=== PATIENT | female | born 1985 | race Caucasian/White ===

== ENCOUNTER 2016-12-11 15:48 | Emergency (ER) | payer OTHER ==
[~2016-12-11] VITALS: Wt 64.4 kg
[~2016-12-11 15:48] MED LIST: AMOXICILLIN500 MG PO; BACTRIM DS 8001 TA1 PO; CIPRO500 MG PO; CIPROFLOXACIN500 MG PO; DIFLUCAN150 MG PO; MACROBID100 M1 PO; MOTRIN800 MG PO; Motrin,Rufen800 MG PO; PYRIDIUM200 MG PO; ROBITUSSIN AC 110 ML PO; TRAMADOL HCL50 MG PO; TRIMOX500 MG PO; VICODIN 5/500 505 MG PO
[2016-12-11] MEDS ORDERED: VISTARIL25 MG PO (16:05)
[2016-12-11 17:11] LABS: BILIRUBIN NEGATIVE (NEGATIVE); BLOOD NEGATIVE (NEGATIVE); CLARITY SL CLOUDY (CLEAR); COLOR YELLOW (YELLOW); GLUCOSE NEGATIVE (NEGATIVE); KETONE NEGATIVE (NEGATIVE); LEUKO ESTERASE NEGATIVE (NEGATIVE); NITRITE NEGATIVE (NEGATIVE); PH 5.5 (5.0-9.0); PROTEIN NEGATIVE (NEGATIVE); SPECIFIC GRAVITY >= 1.030 (1.005-1.030); UROBILINOGEN 0.2 E.U./dl (0.2-1.0)
[2016-12-11 17:24] LABS: RBC 0-2 rbc/hpf (0-2)
[2016-12-11 17:25] LABS: BACTERIA 4+; EPITHELIAL CELLS 16-20; MUCOUS TRACE; URINE REFLEX COMMENT YES (NO)
[2016-12-11] MEDS ORDERED: CYCLOBENZAPRINE5 M3 PO (17:31)
== END 2016-12-11 19:46 | disposition home or self-care (01) ==
LOC: ED 15:48
PROVIDERS: Nurse Practitioner Family
DX: M54.5 Low back pain (principal); F17.200 Nicotine dependence, unspecified, uncomplicated

== ENCOUNTER 2016-12-21 15:07 | Emergency (ER) | payer OTHER ==
[~2016-12-21] VITALS: Ht 154.9 cm; Wt 64.9 kg
[~2016-12-21 15:07] MED LIST changes: +CYCLOBENZAPRINE5 M3 PO; +VISTARIL25 MG PO
[2016-12-21 15:10] VITALS: BP 106/62
== END 2016-12-21 16:54 | disposition home or self-care (01) ==
LOC: ED 15:07
DX: R51 Headache (principal); F17.200 Nicotine dependence, unspecified, uncomplicated

== ENCOUNTER 2017-07-31 01:01 | Emergency (ER) | payer OTHER ==
[~2017-07-31] VITALS: Ht 157.4 cm; Wt 61.2 kg
[2017-07-31 01:07] VITALS: BP 101/60
== END 2017-07-31 01:30 | disposition home or self-care (01) ==
LOC: ED 01:01
DX: J40 Bronchitis, not specified as acute or chronic (principal); F17.200 Nicotine dependence, unspecified, uncomplicated; Z79.899 Other long term (current) drug therapy; Z98.51 Tubal ligation status

== ENCOUNTER 2017-09-14 12:23 | Emergency (ER) | payer OTHER ==
[~2017-09-14] VITALS: Ht 160 cm; Wt 63.5 kg
[2017-09-14 12:34] VITALS: BP 116/60
== END 2017-09-14 13:46 | disposition home or self-care (01) ==
LOC: ED 12:23
DX: S93.401A Sprain of unspecified ligament of right ankle, initial encounter (principal); F17.200 Nicotine dependence, unspecified, uncomplicated; Z98.51 Tubal ligation status; X50.1XXA Overexertion from prolonged static or awkward postures, initial encounter; Y93.89 Activity, other specified; Y92.89 Other specified places as the place of occurrence of the external cause; Y99.9 Unspecified external cause status

== ENCOUNTER 2017-11-04 06:42 | Emergency (ER) | payer OTHER ==
[~2017-11-04] VITALS: Ht 160 cm; Wt 65.8 kg
[2017-11-04 06:47] VITALS: BP 133/64
[2017-11-04] MEDS ORDERED: ZITHROMAX250 MG PO (07:57)
== END 2017-11-04 08:07 | disposition home or self-care (01) ==
LOC: ED 06:42
DX: J40 Bronchitis, not specified as acute or chronic (principal); F17.200 Nicotine dependence, unspecified, uncomplicated

== ENCOUNTER 2018-03-14 01:42 | Emergency (ER) | payer OTHER ==
[~2018-03-14] VITALS: Ht 157.4 cm; Wt 59.0 kg
[~2018-03-14 01:42] MED LIST changes: +ZITHROMAX250 MG PO
[2018-03-14 02:03] LABS: BASO # 0.1 10*3/uL (0.0-0.1); BASO % 0.6 % (0.0-1.0); EOS # 0.1 10*3/uL (0.0-0.4); EOS % 0.9 % (1.0-4.0); HEMATOCRIT 36.5 % (37.0-47.0); HEMOGLOBIN 12.5 g/dl (12.0-16.0); LYMPH # 2.4 10*3/uL (1.3-4.4); MEAN CELL VOLUME 89.2 fl (81.0-99.0); MEAN CORPUSCULAR HGB 30.6 pg (27.0-31.0); MEAN CORPUSCULAR HGB CONC 34.2 g/dl (33.0-37.0); MEAN PLATELET VOLUME 11.4 fl (9.6-12.3); MONO # 0.5 10*3/uL (0.1-1.0); NEUT % 66.3 % (47.0-73.0); PLATELET COUNT AUTOMATED 180 10*3/uL (130-400); RED BLOOD COUNT 4.09 10*6/uL (4.10-5.10); RED CELL DISTRI WIDTH 13.5 % (0-14.5); WHITE BLOOD COUNT 9.1 10*3/uL (4.8-10.8)
[2018-03-14 02:16] LABS: ACT PARTIAL THROMBO TIME 22.5 SECONDS (20.8-31.5)
[2018-03-14 02:23] LABS: ALBUMIN 3.9 gm/dl (3.1-4.5); ALKALINE PHOSPHATASE 68 U/L (45-117); BUN 7 mg/dl (7-24); CHLORIDE 112 mmol/L (98-107); CREATININE 0.82 mg/dL (0.55-1.02); POTASSIUM 3.4 mmol/L (3.5-5.1); SGOT/AST 14 IU/L (3-35); SGPT/ALT 14 U/L (12-78); SODIUM 142 mmol/L (136-145); TOTAL PROTEIN 7.6 gm/dL (6.4-8.2)
[2018-03-14 02:24] LABS: TROPONIN I < 0.015 ng/ml (<0.045)
[2018-03-14 04:16] VITALS: BP 94/40
[2018-03-14] MEDS ORDERED: ANAPROX DS550 MG PO (04:30)
[2018-03-14] MEDS ORDERED: ULTRAM50 MG PO (04:31)
== END 2018-03-14 04:43 | disposition home or self-care (01) ==
LOC: ED 01:42
PROVIDERS: Emergency Medicine Emergency Medical Services
DX: M94.0 Chondrocostal junction syndrome [Tietze] (principal); Z98.51 Tubal ligation status

== ENCOUNTER 2019-01-27 10:42 | Emergency (ER) | payer OTHER ==
[~2019-01-27] VITALS: Ht 157.4 cm; Wt 63.5 kg
[~2019-01-27 10:42] MED LIST changes: +ANAPROX DS550 MG PO; +PREDNISONE20 M1 PO; +ROBAXIN500 M1 PO; +ULTRAM50 MG PO
[2019-01-27 10:44] VITALS: BP 130/96
[2019-01-27] MEDS ORDERED: TYLENOL325 M1 PO (12:16)
[2019-01-27] MEDS ORDERED: Motrin,Rufen400 MG PO (12:16)
[2019-02-05] MEDS ORDERED: ULTRAM50 MG PO (14:39)
[2019-02-07] MEDS ORDERED: XARELTO10 MG PO (13:04)
[2019-02-07] MEDS ORDERED: DOXYCYCLINE100 M3 PO (13:04)
== END 2019-01-27 12:50 | disposition home or self-care (01) ==
LOC: ED 10:42
DX: S82.842A Displaced bimalleolar fracture of left lower leg, initial encounter for closed fracture (principal); S82.832A Other fracture of upper and lower end of left fibula, initial encounter for closed fracture; F17.200 Nicotine dependence, unspecified, uncomplicated; Z79.899 Other long term (current) drug therapy; W10.9XXA Fall (on) (from) unspecified stairs and steps, initial encounter; Y93.89 Activity, other specified; Y92.89 Other specified places as the place of occurrence of the external cause; Y99.8 Other external cause status

== ENCOUNTER → 2019-05-20 | Outpatient (CLI) | payer OTHER ==
[~2019-05-20] MED LIST changes: +DOXYCYCLINE100 M3 PO; +Motrin,Rufen400 MG PO; +NORCO 5-325 TA1 EACH PO; +TYLENOL325 M1 PO; +XARELTO10 MG PO
== END | disposition home or self-care (01) ==
LOC: RAD 10:01
DX: Z01.818 Encounter for other preprocedural examination (principal); F17.200 Nicotine dependence, unspecified, uncomplicated

== ENCOUNTER → 2019-05-23 | Day surgery (SDC) | payer OTHER ==
[2019-05-21 11:53] VITALS: BP 108/69
[~2019-05-23] VITALS: Ht 157.4 cm; Wt 68.0 kg
--- NOTE | ~2019-05-23 | WRIGHTHP ---
[place], [place] PATIENT HISTORY AND PHYSICAL EXAM [id number] UNIT #: [id number] ROOM: DOCTOR: IRON ADAME DPM BIRTHDATE: [birth year] DOS: 05/23/2019 LOWER EXTREMITY PHYSICAL EXAM: VASCULAR: Intact. Pedal pulses 2/4 DP and PT. Good cap fill time. NEUROLOGICAL: She has intact epicritic sensation. DERMATOLOGIC: She has well-healed scars on left lower extremity from her open reduction and internal fixation of her ankle fracture. MUSCULOSKELETAL: She has pain over the hardware causing irritation to her tissues. Painful fixation of the hardware ____ screws. ORTHOPEDIC: Painful hardware, medial aspect, left ankle. IRON ADAME DPM CM:HISPHYS:PATIENT HISTORY AND PHYSICAL EXAMINATION 1427 1442 IRON ADAME DPM 05/23/19 1531 interface
--- NOTE | ~2019-05-23 | WRIGHTHP ---
[place], [place] PATIENT HISTORY AND PHYSICAL EXAM NAME: SHREYAS WALLER [facility] #: [id number] UNIT #: [id number] ROOM: DOCTOR: IRON ADAME DPM BIRTHDATE: [birth year] DOS: 05/23/2019 INDICATION: She is seen for painful hardware, medial aspect of her left ankle. She is set for surgery today at [facility] on 05/23/2019. She understands pros, cons, risks, benefits, overcorrection, under recurrence, recurrence and worsening of it. With this in mind, patient is set for surgery understanding the pros, cons, risks and benefits of the procedure. She agreed to site marking, agreed with the perioperative management, agreed with the postoperative care and the identification and indication for surgery. IRON ADAME DPM CM:HISPHYS:PATIENT HISTORY AND PHYSICAL EXAMINATION 1427 1439 IRON ADAME DPM 05/23/19 1439 interface
--- NOTE | ~2019-05-23 | O ---
[place], [place] OPERATIVE NOTE NAME: SHREYAS WALLER UNIT #: [id number] ROOM: DOCTOR: IRON ADAME DPM BIRTHDATE: [birth year] DOS: 05/23/2019 SURGEON: Dr. Adame. CASINO ATTENDANT: 1. Dr. Sergio Bess. 2. Zi Xiao, PGY3 3. Penny Moralez, PGY-3. PREOPERATIVE DIAGNOSIS: Painful hardware, left ankle. POSTOPERATIVE DIAGNOSIS: Painful hardware, left ankle. PROCEDURE: Removal of painful hardware, left. DESCRIPTION OF PROCEDURE: The patient was seen in preoperative holding area. Appropriate site marking was performed. She concurred. She agreed to perioperative management, site marking and consent. She was brought to OR, placed on the OR table where anesthesia was achieved. Once anesthesia was achieved, appropriate timeout was performed. Everybody in the room concurred to the timeout procedure. REMOVAL OF PAINFUL HARDWARE: The left foot and leg were prepped and draped in sterile fashion. Hemostasis was accomplished by mid-thigh tourniquet inflated to 300 mmHg. Attention was directed to medial aspect of the left ankle where an incision was made over the previous incision, it was carried down to the plate. Soft tissue retracted medially and laterally and at this time, the plate and screws were completely removed, checked under fluoroscopy and noted to be in good alignment. The ankle was stressed, noted to be very stable. The deep tissues were closed using 0 Vicryl ____ and skin was closed with 2-0 nylon. Surgical wounds were dressed with Betadine-soaked Adaptic, 4 x 4s, Saurabh in a sterile fashion. Tourniquet was released and normal vascular status returned to all digits of left lower extremity, tolerated the procedure and anesthesia well, left the OR with vital signs stable and vascular status grossly intact. A Betadine-soaked Adaptic, 4 x 4s, Saurabh and sterile compressive dressing were applied to her left lower extremity incision for ____. [place], [place] OPERATIVE NOTE NAME: SHREYAS WALLER UNIT #: [id number] ROOM: DOCTOR: IRON ADAME DPM BIRTHDATE: [birth year] IRON ADAME DPM CM:OPRECORD:OPERATIVE NOTE 1427 1455 IRON ADAME DPM 05/23/19 1614 interface
[2019-05-23 12:26] VITALS: BP 105/65
[2019-05-23 14:36] VITALS: BP 116/55
[2019-05-23 14:50] VITALS: BP 119/62
[2019-05-23 15:03] VITALS: BP 111/75
[2019-05-23 15:19] VITALS: BP 110/56
== END | disposition home or self-care (01) ==
LOC: SDC 05-21 01:50
DX: T84.84XA Pain due to internal orthopedic prosthetic devices, implants and grafts, initial encounter (principal); F17.210 Nicotine dependence, cigarettes, uncomplicated; Z98.890 Other specified postprocedural states; X58.XXXA Exposure to other specified factors, initial encounter; Y93.89 Activity, other specified; Y92.89 Other specified places as the place of occurrence of the external cause; Y99.8 Other external cause status; Z82.49 Family history of ischemic heart disease and other diseases of the circulatory system

== ENCOUNTER 2021-05-06 13:32 | Emergency (ER) | payer OTHER ==
[~2021-05-06] VITALS: Ht 160 cm; Wt 74.8 kg
[~2021-05-06 13:32] MED LIST changes: +CYMBALTA20 M1 PO; +HYDROCODONE-AC1 EAC1 PO; +MELATONIN10 M2 PO; +MINIPRESS1 M1 PO; +SEROQUEL25 MG PO; +WELLBUTRIN SR150 MG PO
[2021-05-06 13:35] VITALS: BP 118/71
[2021-05-06] MEDS ORDERED: PREDNISONE20 M1 PO (14:49)
== END 2021-05-06 14:54 | disposition home or self-care (01) ==
LOC: ED 13:32
DX: L23.7 Allergic contact dermatitis due to plants, except food (principal); Z79.899 Other long term (current) drug therapy

== ENCOUNTER 2021-08-11 16:33 | Emergency (ER) | payer OTHER ==
[~2021-08-11] VITALS: Ht 157.4 cm; Wt 65.8 kg
[2021-08-11 16:37] VITALS: BP 119/57
[2021-08-11 17:24] LABS: BASO # 0.1 10*3/uL (0.0-0.1); BASO % 0.6 % (0.0-1.0); EOS # 0.1 10*3/uL (0.0-0.4); EOS % 0.9 % (1.0-4.0); HEMATOCRIT 39.3 % (37.0-47.0); LYMPH # 1.9 10*3/uL (1.3-4.4); LYMPH % 20.2 % (27.0-41.0); MEAN CELL VOLUME 91.4 fl (81.0-99.0); MEAN CORPUSCULAR HGB 31.6 pg (27.0-31.0); MEAN CORPUSCULAR HGB CONC 34.6 g/dl (33.0-37.0); MEAN PLATELET VOLUME 11.2 fl (9.6-12.3); MONO # 0.5 10*3/uL (0.1-1.0); MONO % 5.6 % (3.0-9.0); NEUT # 6.9 10*3/uL (2.3-7.9); NEUT % 72.4 % (47.0-73.0); PLATELET COUNT AUTOMATED 187 10*3/uL (130-400); RED CELL DISTRI WIDTH 12.9 % (0-14.5); WHITE BLOOD COUNT 9.6 10*3/uL (4.8-10.8)
[2021-08-11 17:28] LABS: BILIRUBIN Negative (Negative); BLOOD Negative (Negative); CLARITY Turbid (Clear); COLOR Yellow (Yellow); GLUCOSE Negative (Negative); KETONE Negative (Negative); LEUKO ESTERASE Negative (Negative); NITRITE Negative (Negative)
[2021-08-11 17:33] LABS: BACTERIA 2+; EPITHELIAL CELLS TNTC; MUCOUS TRACE; RBC 0-2 rbc/hpf (0-2); WBC 0-2 wbc/hpf (0-5)
[2021-08-11 17:40] LABS: ALBUMIN 3.5 gm/dl (3.1-4.5); ALKALINE PHOSPHATASE 81 U/L (45-117); BETA-HCG, QUANT < 1.0 mIU/mL (1-3); BUN 9 mg/dl (7-24); CHLORIDE 109 mmol/L (98-107); CREATININE 0.78 mg/dL (0.55-1.02); LIPASE 172 U/L (73-393); SGOT/AST 13 IU/L (3-35); SGPT/ALT 19 U/L (12-78); SODIUM 138 mmol/L (136-145); TOTAL PROTEIN 7.5 gm/dL (6.4-8.2)
[2021-08-11] MEDS ORDERED: PHENERGAN25 M3 PO (18:56)
[2021-08-11] MEDS ORDERED: HYDROCODONE-AC1 EAC1 PO (18:56)
[2021-08-11] MEDS ORDERED: CIPRO500 MG PO (18:56)
[2021-08-11] MEDS ORDERED: METRONIDAZOLE500 M1 PO (18:56)
== END 2021-08-11 19:04 | disposition home or self-care (01) ==
LOC: ED 16:33
PROVIDERS: Emergency Medicine
DX: K52.9 Noninfective gastroenteritis and colitis, unspecified (principal); F17.200 Nicotine dependence, unspecified, uncomplicated; Z98.890 Other specified postprocedural states; Z98.51 Tubal ligation status

== ENCOUNTER → 2021-10-02 | Outpatient (CLI) | payer OTHER ==
[~2021-10-02] MED LIST changes: +METRONIDAZOLE500 M1 PO; +PHENERGAN25 M3 PO
== END | disposition home or self-care (01) ==
LOC: COVID19 16:02
PROVIDERS: ATTEND Internal Medicine
DX: Z11.52 Encounter for screening for COVID-19 (principal)

== ENCOUNTER 2022-06-22 03:57 | Emergency (ER) | payer OTHER ==
[2022-06-22 04:34] LABS: BASO % 0.6 % (0.0-1.0); EOS # 0.1 10*3/uL (0.0-0.4); EOS % 0.8 % (1.0-4.0); HEMATOCRIT 39.4 % (37.0-47.0); LYMPH # 0.4 10*3/uL (1.3-4.4); LYMPH % 5.9 % (27.0-41.0); MEAN CELL VOLUME 92.1 fl (81.0-99.0); MEAN CORPUSCULAR HGB 31.3 pg (27.0-31.0); MEAN PLATELET VOLUME 11.5 fl (9.6-12.3); MONO # 0.3 10*3/uL (0.1-1.0); MONO % 3.4 % (3.0-9.0); NEUT # 6.5 10*3/uL (2.3-7.9); PLATELET COUNT AUTOMATED 168 10*3/uL (130-400); RED BLOOD COUNT 4.28 10*6/uL (4.10-5.10); RED CELL DISTRI WIDTH 13.4 % (0-14.5); WHITE BLOOD COUNT 7.3 10*3/uL (4.8-10.8)
[2022-06-22 04:50] LABS: ALKALINE PHOSPHATASE 71 U/L (45-117); BUN 13 mg/dl (7-24); CHLORIDE 109 mmol/L (98-107); CREATININE 0.88 mg/dL (0.55-1.02); SGOT/AST 18 IU/L (3-35); SGPT/ALT 19 U/L (12-78); SODIUM 138 mmol/L (136-145); TOTAL PROTEIN 6.9 gm/dL (6.4-8.2)
== END 2022-06-22 05:09 | disposition home or self-care (01) ==
LOC: ED 03:57
PROVIDERS: Internal Medicine
DX: U07.1 COVID-19 (principal); J06.9 Acute upper respiratory infection, unspecified; Z98.51 Tubal ligation status; Z98.890 Other specified postprocedural states; Z87.891 Personal history of nicotine dependence

== ENCOUNTER 2023-11-13 23:21 | Emergency (ER) | payer SELFPAY ==
[~2023-11-13] VITALS: Ht 157.4 cm; Wt 54.4 kg
[2023-11-13 23:27] VITALS: BP 125/57
[2023-11-13] MEDS ORDERED: Tdap Vaccine 0.5 ML SYR (Adult Vaccine) IM ONE (23:35)
[2023-11-14] MEDS ORDERED: Acetaminophen/Hydrocodone 5 MG/325 MG TABLET PO ONE (00:30)
[2023-11-14] MEDS ORDERED: Ondansetron Hydrochloride 4 MG TAB SL ONE (00:30)
[2023-11-14] MEDS ORDERED: EPINEPHrine/Lidocaine Hydroc 10 ML VIAL SC ONE (00:35)
[2023-11-14] MEDS ORDERED: Bacitracin Zinc 14 GM TUBE T ONE (04:30)
== END 2023-11-14 05:17 | disposition home or self-care (01) ==
LOC: ED 23:21
DX: S01.81XA Laceration without foreign body of other part of head, initial encounter (principal); F32.A Depression, unspecified; Z98.51 Tubal ligation status; Z98.890 Other specified postprocedural states; F17.200 Nicotine dependence, unspecified, uncomplicated; Y08.89XA Assault by other specified means, initial encounter; Y93.89 Activity, other specified; Y92.89 Other specified places as the place of occurrence of the external cause; Y99.0 Civilian activity done for income or pay

== ENCOUNTER 2025-03-30 15:28 | Emergency (ER) | payer OTHER ==
[~2025-03-30] VITALS: Ht 160 cm; Wt 56.7 kg
[2025-03-30 15:50] VITALS: BP 94/55
[2025-03-30] MEDS ORDERED: Bacitracin Zinc 14 GM TUBE T ONE (16:40)
[2025-03-30] MEDS ORDERED: Lidocaine Hydrochloride 2% 10 ML AMP SC ONE (16:40)
[2025-03-30] MEDS ORDERED: Tdap Vaccine 0.5 ML SYR (Adult Vaccine) IM ONE (16:40)
[2025-03-30] MEDS ORDERED: CEPHALEXIN 500 MG CAP PO ONE (16:40)
[2025-03-30] MEDS ORDERED: CEPHALEXIN500 M1 PO (17:01)
== END 2025-03-30 17:03 | disposition home or self-care (01) ==
LOC: ED 15:28
DX: S51.811A Laceration without foreign body of right forearm, initial encounter (principal); F41.9 Anxiety disorder, unspecified; F31.9 Bipolar disorder, unspecified; E66.9 Obesity, unspecified; Z68.30 Body mass index [BMI] 30.0-30.9, adult; Z87.891 Personal history of nicotine dependence; Y04.2XXA Assault by strike against or bumped into by another person, initial encounter; Y93.89 Activity, other specified; Y92.89 Other specified places as the place of occurrence of the external cause; Y99.8 Other external cause status